=== PATIENT | female | born 1960 | race Caucasian/White ===

== ENCOUNTER → 2021-09-14 | Day surgery (SDC) | payer OTHER ==
[~2021-09-14] MED LIST: ACETAMINOPHEN 1000 MG/100 ML 100 ML IV ONE; BUPIVACAINE HC 0.75% PF 10ML VIAL INJ ONE; BUPIVACAINE HCL 0.25% 10ML MPF VIAL INJ ONE; FLUCONAZOLE TOP; FLUOCINOLONE AC60 ML TOP; HYDROCORTISONE114 GM TOP; HYDROCORTISONE25 MG PR; LIDOCAINE HCL 1% LOCAL INJ 20 ML VIAL ONE
[2021-09-14 13:35] VITALS: BP 133/75
== END | disposition home or self-care (01) ==
LOC: OR 10:54
PROVIDERS: ATTEND Orthopaedic Surgery
DX: M67.441 Ganglion, right hand (principal); Z88.6 Allergy status to analgesic agent; Z01.810 Encounter for preprocedural cardiovascular examination; Z01.812 Encounter for preprocedural laboratory examination; Z20.822 Contact with and (suspected) exposure to COVID-19
CPT/HCPCS: 0223U; 26160; 36415; 88304; 93005; J0131; J0690; J2001